=== PATIENT | male | born 1960 | race Caucasian/White ===

== ENCOUNTER 2018-03-20 16:34 | Observation (INO) | END 2018-03-21 14:15 | disposition home or self-care (01) ==

== ENCOUNTER 2018-08-21 12:21 | Inpatient (IN) | payer OTHER ==
[~2018-08-21] VITALS: Ht 172.7 cm; Wt 94.5 kg
[~2018-08-21 12:21] MED LIST: ASPI81TA52 PO; ATOR20TA38 PO; CARV25TA79 PO; INSU100I12 SQ; INSU300I SQ; LISI-471 PO; METF100010 PO; NITR0.4T39 SL; TAMS0.4C2 PO; TICA90TA PO
[2018-08-21] MEDS ORDERED: SOD CHLORIDE 0.9% 500 ML IV STA (12:35)
--- NOTE | 2018-08-21 13:17 | ERD ---
ER Documentation Chief Complaint Chief Complaint SENT BY FOR ABNORMAL STRESS TEST HPI 58-year-old man referred here by his tubular splitting machine tender for evaluation and admission due to abnormal exercise stress test performed today. Patient states he ran on the treadmill for about 3 minutes and developed pressure-like chest discomfort, it was noted that he had EKG changes during exercise stress test so he was referred here for admission and evaluation. Patient states he uses aspirin daily for the last few months he has been experiencing claudication and exertional chest discomfort. Patient denies chest pain in the ED. Patient denies shortness of breath, no cough, no fevers or chills, no weight loss, no vomiting or diarrhea. Does have a history of hypertension and diabetes and has been using his medications as prescribed. ROS All systems reviewed and are negative except as per history of present illness. Medications Home Meds Active Scripts Ticagrelor* (Brilinta*) 90 Mg Tablet, 90 MG PO BID for 30 Days, TAB Prov:GARY AVILES 03/21/18 Reported Medications Insulin Lispro (Humalog Kwikpen U-100) 100 Unit/1 Ml Insuln.pen, 14 UNIT SQ AC BREAKFAST LUNCH, EA 03/20/18 Insulin Glargine,Hum.rec.anlog (Toujeo Solostar) 300 Unit/1 Ml Insuln.pen, 34 UNIT SQ QHS, EA 03/20/18 Aspirin (Low Dose Aspirin) 81 Mg Tablet.dr, 81 MG PO DAILY, #30 TAB 03/20/18 Tamsulosin Hcl* (Tamsulosin Hcl*) 0.4 Mg Cap.er.24h, 0.4 MG PO HS, CAP 03/20/18 Metformin Hcl* (Metformin Hcl*) 1,000 Mg Tablet, 1000 MG PO WITH BREAKFAST DINNE, #60 TAB 03/20/18 Lisinopril* (Lisinopril*) 20 Mg Tablet, 20 MG PO DAILY, #30 TAB 03/20/18 Carvedilol* (Carvedilol*) 25 Mg Tablet, 25 MG PO BID, #60 TAB 03/20/18 Atorvastatin Calcium* (Atorvastatin Calcium*) 20 Mg Tablet, 20 MG PO QHS, #30 TAB 03/20/18 Nitroglycerin* (Nitrostat*) 0.4 Mg Tab.subl, 0.4 MG SL Q5MIN PRN for CHEST PAIN, BOTTLE 03/20/18 Allergies Allergies: Coded Allergies: No Known Allergy (Unverified , 03/20/18) PMhx/Soc Hypertension, diabetes mellitus History of Surgery: Yes (BACK SX 1996 , STENT ) Anesthesia Reaction: No Hx Neurological Disorder: No Hx Respiratory Disorders: No Hx Cardiac Disorders: Yes (HTN, HLP, ABNORMAL STRESS TEST) Hx Psychiatric Problems: No Hx Miscellaneous Medical Probl: Yes (DM ) Hx Alcohol Use: No Hx Substance Use: No Hx Tobacco Use: Yes (QUIT 7 MONTHS AGO ) Smoking Status: Former smoker FmHx Family History: No diabetes Physical Exam Vitals Vital Signs Date Temp Pulse Resp B/P (MAP) Pulse Ox O2 O2 Flow FiO2 Time Delivery Rate 08/21/18 86 18 125/84 98 Room Air 13:50 (98) 08/21/18 99.0 82 16 133/63 95 12:31 (86) Physical Exam GENERAL: Well-developed, well-nourished, well-hydrated, in no apparent distress, looks nontoxic in appearance HEENT: Moist mucous membranes, pink conjunctiva, no cervical spine tenderness or step-off deformities, no goiter, no jaundice or icterus, extraocular movements i ntact without pain. No submandibular induration, and no pharyngeal erythema NEURO: Alert and oriented 3, cranial nerves II through XII intact bilaterally, pupils equal round reactive to light, no focal deficits or facial asymmetry, sensation intact distally Strength 5/5 in upper and lower extremities bilaterally CARDIAC: Regular rate and rhythm, no murmurs rubs or gallops LUNGS: Clear bilaterally no wheezing crackles or stridor ABDOMEN: Soft nontender, no guarding, no rigidity, no rebound, no psoas sign no obturator sign. Normoactive bowel sounds SKIN: Warm and dry to touch, no abrasions, contusions, or hematomas, no lacerations, no ecchymosis, no target lesions, and without ulcers EXTREMITIES: No clubbing cyanosis or edema, calves are bilaterally symmetrical, no Homans sign, no popliteal cord sign. Distal pulses equal and bilateral PSYCH: Normal affect without agitation or irritability Result Diagram: 08/21/18 1248 08/21/18 1248 Results 24 hrs Laboratory Tests Test 08/21/18 12:48 White Blood Count 7.4 10^3/ul Red Blood Count 4.86 10^6/ul Hemoglobin 14.4 g/dl Hematocrit 41.5 % Mean Corpuscular Volume 85.4 fl Mean Corpuscular Hemoglobin 29.6 pg Mean Corpuscular Hemoglobin Concent 34.7 g/dl Red Cell Distribution Width 13.0 % Platelet Count 142 10^3/UL Mean Platelet Volume 10.9 fl Immature Granulocytes % 0.300 % Neutrophils % 71.4 % Lymphocytes % 16.9 % Monocytes % 6.9 % Eosinophils % 4.1 % Basophils % 0.4 % Nucleated Red Blood Cells % 0.0 /100WBC Immature Granulocytes # 0.020 10^3/ul Neutrophils # 5.3 10^3/ul Lymphocytes # 1.3 10^3/ul Monocytes # 0.5 10^3/ul Eosinophils # 0.3 10^3/ul Basophils # 0.0 10^3/ul Nucleated Red Blood Cells # 0.0 10^3/ul Sodium Level 137 mmol/L Potassium Level 4.3 mmol/L Chloride Level 101 mmol/L Carbon Dioxide Level 24 mmol/L Anion Gap 12 Blood Urea Nitrogen 16 mg/dl Creatinine 1.07 mg/dl Est Glomerular Filtrat Rate mL/min > 60 mL/min Glucose Level 205 mg/dl Calcium Level 9.3 mg/dl Total Bilirubin 0.5 mg/dl Direct Bilirubin 0.00 mg/dl Indirect Bilirubin 0.5 mg/dl Aspartate Amino Transf (AST/SGOT) 26 IU/L Alanine Aminotransferase (ALT/SGPT) 35 IU/L Alkaline Phosphatase 78 IU/L Troponin I 0.012 ng/ml B-Type Natriuretic Peptide 46 PG/ML Total Protein 7.2 g/dl Albumin 4.3 g/dl Globulin 2.90 g/dl Albumin/Globulin Ratio 1.48 Lipase 169 U/L Current Medications Medications Dose Sig/Mercedes Start Time Status Last (Trade) Ordered Route PRN Stop Time Admin Dose Reason Admin Sodium 500 ml @ Q1H STAT 08/21/18 DC 08/21/18 Chloride 500 mls/hr IV 12:35 12:53 08/21/18 13:34 Procedures/MDM IV line was established patient was placed on threat monitoring analyst rhythm strip revealed a sinus rhythm at about 90 bpm with upright P and T waves. Patient was afebrile Chest X-ray 1V Interpreted by me: Soft Tissue: No acute abnormalities Bones: No acute abnormalities Mediastinum/Cardiac Silhouette/Lungs: No acute abnormalities EKG performed, read by me revealed a normal sinus rhythm at 90 bpm, normal axis, narrow QRS complex, no concerning ST elevations or depressions noted. CBC and electrolytes were normal, liver function tests were normal, troponin was negative Patient is asymptomatic in the ER and used aspirin prior to arrival. Patient will be admitted to telemetry setting for continued medical management and cardiology consultation, it seems she had an abnormal stress test today with ST changes upon exertion and will require further management in the hospital. Departure Diagnosis: Primary Impression: Chest pain Chest pain type: unspecified Qualified Codes: R07.9 - Chest pain, unspecified Condition: KADE Gillespie MD Aug 21, 2018 13:17
[2018-08-21] MEDS ORDERED: INSU300I SQ (14:33)
[2018-08-21] MEDS ORDERED: TICA90TA PO (14:36)
[2018-08-21] MEDS ORDERED: AMLO2.5T78 PO (14:36)
[2018-08-21] MEDS ORDERED: NITROGLYCERIN (SL) 0.4 MG TAB SL PRN ×2 (16:30→21:00)
[2018-08-21] MEDS ORDERED: ONDANSETRON 4 MG INJ IV PRN (17:30)
[2018-08-21] MEDS ORDERED: ACETAMINOPHEN 325 MG TAB PO PRN ×2 (17:30→21:00)
--- NOTE | 2018-08-21 17:35 | HP ---
Date/Time of Note Date/Time of Note DATE: 08/21/18 TIME: 17:16 Assessment/Plan Lines/Catheters IV Catheter Type (from Nrsg): Saline Lock Assessment/Plan Assessment/Plan - Chest pain - Cardiology consult- Dr Ruiz - npo POST MIDNIGHT PER Dr Ruiz - am labs - Abnormal stress test - HTN - Hyperlipemia - DM - Glycemic control - GERD - SP Back SX - BPH - Former Smoker - Reinforce Smoking Cessation [facility] Result Diagram: 08/21/18 1248 08/21/18 1248 Results 24hrs Laboratory Tests Test 08/21/18 12:48 White Blood Count 7.4 Red Blood Count 4.86 Hemoglobin 14.4 Hematocrit 41.5 L Mean Corpuscular Volume 85.4 Mean Corpuscular Hemoglobin 29.6 Mean Corpuscular Hemoglobin Concent 34.7 Red Cell Distribution Width 13.0 Platelet Count 142 Mean Platelet Volume 10.9 H Immature Granulocytes % 0.300 Neutrophils % 71.4 Lymphocytes % 16.9 Monocytes % 6.9 Eosinophils % 4.1 Basophils % 0.4 Nucleated Red Blood Cells % 0.0 Immature Granulocytes # 0.020 Neutrophils # 5.3 Lymphocytes # 1.3 Monocytes # 0.5 Eosinophils # 0.3 Basophils # 0.0 Nucleated Red Blood Cells # 0.0 Sodium Level 137 Potassium Level 4.3 Chloride Level 101 Carbon Dioxide Level 24 Anion Gap 12 Blood Urea Nitrogen 16 Creatinine 1.07 Est Glomerular Filtrat Rate mL/min > 60 Glucose Level 205 Calcium Level 9.3 Total Bilirubin 0.5 Direct Bilirubin 0.00 Indirect Bilirubin 0.5 Aspartate Amino Transf (AST/SGOT) 26 Alanine Aminotransferase (ALT/SGPT) 35 Alkaline Phosphatase 78 Troponin I 0.012 B-Type Natriuretic Peptide 46 Total Protein 7.2 Albumin 4.3 Globulin 2.90 Albumin/Globulin Ratio 1.48 Lipase 169 HPI/ROS Admit Date/Time Admit Date/Time ROS SENT BY FOR ABNORMAL STRESS TEST HPI 58-year-old man referred here by his extruder tender for evaluation and admission due to abnormal exercise stress test performed today. Patient states he ran on the treadmill for about 3 minutes and developed pressure-like chest discomfort, it was noted that he had EKG changes during exercise stress test so he was referred here for admission and evaluation. Patient states he uses aspirin daily for the last few months he has been experiencing claudication and exertional chest discomfort. Patient denies chest pain in the ED. Patient denies shortness of breath, no cough, no fevers or chills, no weight loss, no vomiting or diarrhea. Does have a history of hypertension and diabetes and has been using his medications as prescribed. ROS All systems reviewed and are negative except as per history of present illness. Constitutional: improved Eyes: no complaints ENT: no complaints Respiratory: no complaints Cardiovascular: no complaints Gastrointestinal: no complaints Genitourinary: no complaints Musculoskeletal: no complaints Skin: no complaints Neurologic: no complaints Endocrine: no complaints Lymphatic: no complaints Psychological: nl mood/affect Immunologic: no complaints PMH/Family/Social Past Medical History Allergies Allergies: Coded Allergies: No Known Allergy (Unverified , 03/20/18) PMhx/Soc Hypertension, diabetes mellitus History of Surgery: Yes (BACK SX 1996 , STENT ) Anesthesia Reaction: No Hx Neurological Disorder: No Hx Respiratory Disorders: No Hx Cardiac Disorders: Yes (HTN, HLP, ABNORMAL STRESS TEST) Hx Psychiatric Problems: No Hx Miscellaneous Medical Probl: Yes (DM ) Hx Alcohol Use: No Hx Substance Use: No Hx Tobacco Use: Yes (QUIT 7 MONTHS AGO ) Smoking Status: Former smoker FmHx Family History: No diabetes Medications Current Medications Amlodipine Besylate (Norvasc) 2.5 mg DAILY PO ; Start 08/22/18 at 09:00; Status UNV Aspirin (Halfprin) 81 mg DAILY PO ; Start 08/22/18 at 09:00; Status UNV Atorvastatin Calcium (Lipitor) 20 mg QHS PO ; Start 08/21/18 at 21:00; Status UNV Carvedilol (Coreg) 25 mg BID PO ; Start 08/21/18 at 21:00; Status UNV Lisinopril (Zestril) 20 mg DAILY PO ; Start 08/22/18 at 09:00; Status UNV Nitroglycerin (Nitroglycerin (Sl Tab) 0.4 Mg) 0.4 tab PRN PRN SL CHEST PAIN; Start 08/21/18 at 16:30; Status UNV Tamsulosin HCl (Flomax) 0.4 mg HS PO ; Start 08/21/18 at 21:00; Status UNV Ticagrelor (Brilinta) 90 mg BID PO ; Start 08/21/18 at 21:00; Status UNV Miscellaneous Information (* Miscellaneous Pharmacy Order) Discontinue current oral sulfonylur... ONCE ONCE XX ; Start 08/21/18 at 16:30; Stop 08/21/18 at 16:31; Status UNV Diagnostic Test (Pha) (Accu-Chek) 1 XX ; Start 08/22/18 at 02:00; Status UNV Miscellaneous Information (* Miscellaneous Pharmacy Order) HYPOGLYCEMIA PROTOCOL w... ONCE ONCE XX ; Start 08/21/18 at 16:30; Stop 08/21/18 at 16:31; Status U NV Insulin Aspart (Novolog Insulin Pen) NOVOLOG *MILD* ALGORITHM WITH MEALS BEDTIME SC ; Start 08/21/18 at 18:00; Status UNV Miscellaneous Information (* Miscellaneous Pharmacy Order) Discontinue all previ... ONCE ONCE XX ; Start 08/21/18 at 16:30; Stop 08/21/18 at 16:31; Status UNV Insulin Glargine (Lantus) 20 units DAILY@2000 SC ; Start 08/21/18 at 20:00; Status UNV Coded Allergies: No Known Allergy (Unverified , 08/21/18) Past Surgical History Past Surgical Hx: other Family History Significant Family History: diabetes Social History Smoking Status: Former smoker Exam/Review of Systems Vital Signs Vitals Vital Signs Date Temp Pulse Resp B/P (MAP) Pulse Ox O2 O2 Flow FiO2 Time Delivery Rate 08/21/18 85 16 112/77 98 Room Air 15:30 (89) 08/21/18 99.0 12:31 Exam Constitutional: alert, oriented, well developed Psych: nl mood/affect Head: atraumatic Eyes: EOMI, nl lids, nl sclera ENMT: nl external ears & nose, nl lips & teeth, mucosa pink and moist Neck: non-tender Respiratory: clear to auscultation Cardiovascular: nl pulses, other (s1s2) Gastrointestinal: soft, non-tender Musculoskeletal: nl extremities to inspection Extremities: normal pulses Neurological: nl mental status, nl speech Skin: nl turgor Lymph: nontender GARY AVIELS Aug 21, 2018 17:33
[2018-08-21] MEDS ORDERED: INSULIN GLARGINE [LANTus] (100 UNITS/ML) SYG SC SCH (20:00)
--- NOTE | 2018-08-21 20:16 | CONS ---
DATE OF ADMISSION: 08/21/2018 DATE OF CONSULTATION: 08/21/2018 TYPE OF CONSULTATION: Cardiology. REASON FOR CONSULTATION: Abnormal stress test. REQUESTING PHYSICIAN: Purvi Worthington MD, from the hospital and Kade Curtis MD, from the emergenc y department. HISTORY OF PRESENT ILLNESS: Mr. Mcmullen is a 58-year-old male with a history of hypertension, dyslipid emia, diabetes mellitus, coronary artery disease, status post PTCA and stent placement on 03/20/2018 with 2 drug-eluting stents to circumflex and one to the LAD, was discharged on aspirin and Brilinta, who had presented to his primary media coordinator with complaints of chest pain. The patient subsequentl y underwent a cardiac stress test and was found to have ST elevations during his stress test; therefo re was terminated. The patient was referred to the emergency department for further evaluation and t reatment. Upon arrival, temperature was 99, blood pressure 133/60, pulse 82, respiratory rate 16, sa tting 94%. The patient's labs were notable for white blood cell count of 7.4, hemoglobin of 14.4, pl atelet count 142, sodium of 137, potassium 4.3, creatinine 1.0, BUN 16, AST 26, ALT 35, BNP of 46. T he patient's chest x-ray revealed no acute cardiopulmonary abnormalities. Electrocardiogram revealed normal sinus rhythm, rate 90, normal axis, normal intervals, nonspecific ST and T abnormalities. PAST MEDICAL HISTORY: As above in HPI. MEDICATIONS PRIOR TO ADMIT: 1. Brilinta 90 mg p.o. b.i.d. 2. Insulin. 3. Aspirin 81 mg daily. 4. Flomax 0.4 mg daily. 5. Metformin. 6. Lisinopril 10 mg daily. 7. Carvedilol 25 mg p.o. b.i.d. 8. Lipitor 20 mg at bedtime. 9. Sublingual nitroglycerin. ALLERGIES: NO KNOWN DRUG ALLERGIES. SOCIAL HISTORY: Former tobacco, quit x7 months. No EtOH or illicit drug use. FAMILY HISTORY: No history of sudden cardiac or early CAD. REVIEW OF SYSTEMS: As above in HPI. CONSTITUTIONAL: No fevers, chills. PULMONARY: Dyspnea on exertion. CARDIOVASCULAR: Chest pain. GASTROINTESTINAL: No vomiting. GENITOURINARY: No hematuria. MUSCULOSKELETAL: Degenerative joint disease. PSYCHIATRIC: The patient has depression. NEUROLOGIC: No documented history of CVA. ENDOCRINE: Diabetes mellitus. PHYSICAL EXAMINATION: VITAL SIGNS: Temperature of 99, blood pressure most recently is 112/77, pulse 85, respiratory rate 1 6, satting 98%. GENERAL: The patient is alert, awake, in no acute distress. NECK: JVP approximately is 8 to 9 cm of water. CHEST: Fair air movement throughout. HEART: Regular rate and rhythm. Normal S1, S2, I/ systolic murmur. Nondisplaced PMI. ABDOMEN: Positive bowel sounds, soft. EXTREMITIES: No edema, 1+ pulses bilateral posterior tibial. LABORATORY DATA: Most recently from today, sodium 137, potassium 4.3, creatinine 1.0, BUN 16. AST 2 6, ALT 35. Troponin negative. BNP of 46. White blood cell count 7.4, hemoglobin 14.4, platelet cou nt 142. IMAGING STUDIES: As above in HPI. No further imaging studies for my review at this time. ELECTROCARDIOGRAM: As above in HPI. No further electrocardiograms for my review at this time. IMPRESSION: 1. Chest pain, assess for acute coronary syndrome. 2. Abnormal cardiac stress test in primary media coordinator's office today with development of ST elevat ions and termination of stress test early. 3. History of PTCA and stent placement to LAD and circumflex in 03/2018. 4. Hypertension. 5. Dyslipidemia. 6. Former tobacco intake. RECOMMENDATIONS: 1. At this time, we would admit patient to telemetry monitoring. 2. We would continue the patient's baseline aspirin and Brilinta. 3. We would continue the patient's baseline statin therapy and adjust it according to a fasting lipi d panel checked. 4. Continue the patient's baseline beta blockers and TAMAR inhibitors. 5. Continue the patient's sublingual nitroglycerin for recurrent episodes of chest pain. 6. Follow the patient's blood sugars closely. 7. Check serial EKGs, assess for ongoing changes, EKG in the morning, EKG for any complaints of ches t pain or change in rhythm and we will discuss possibly repeat cardiac catheterization with this joan ent. Thank you for allowing me to take part in the care of this patient. Dictated By: RAYMUNDO MUNSON/MARYBEL Conf#: [id number] DID#: [id number] CC: KADE CURTIS MD; PURVI WORTHINGTON MD;*EndCC*
[2018-08-21] MEDS ORDERED: ZOLPIDEM 5 MG TAB PO PRN (21:00)
[2018-08-21] MEDS ORDERED: GLUCAGON 1 MG INJ IM PRN (21:00)
[2018-08-21] MEDS ORDERED: DEXTROSE 50% 50 ML SYRINGE IV PRN ×2 (21:00)
[2018-08-21] MEDS ORDERED: ATORVASTATIN 20 MG TAB PO SCH ×2 (21:00)
[2018-08-21] MEDS ORDERED: GLUCOSE GEL 15 GRAM TUBE PO PRN ×2 (21:00)
[2018-08-21] MEDS ORDERED: METOPROLOL 25 MG TAB PO SCH (21:00)
[2018-08-21] MEDS ORDERED: TICAGRELOR 90 MG TABLET PO SCH (21:00)
[2018-08-21] MEDS ORDERED: GLUCOSE GEL 15 GRAM TUBE BUCCAL PRN (21:00)
[2018-08-21] MEDS: INSULIN ASPART [NOVOLOG] 3 ML PEN SC SCH ×2 (21:00→21:47)
[2018-08-21] MEDS ORDERED: TAMSULOSIN (SR) 0.4 MG CAP PO SCH ×2 (21:00)
[2018-08-21 21:43] VITALS: Ht 172.7 cm; Wt 94.5 kg
[2018-08-21] MEDS: DOCUSATE SODIUM 100 MG CAP PO SCH (21:48)
[2018-08-21] MEDS: TICAGRELOR 90 MG TABLET PO SCH (22:06)
[2018-08-21 23:16] VITALS: BP 106/78; PULSE 90; RESP 19
[2018-08-22] VITALS (9 sets, daily range): BP systolic 112–138; BP diastolic 60–76; PULSE 70–91; RESP 18–19
[2018-08-22] MEDS ORDERED: ACCU-CHEK XX SCH (02:00)
[2018-08-22] MEDS: DOCUSATE SODIUM 100 MG CAP PO SCH (08:02)
[2018-08-22] MEDS: INSULIN ASPART [NOVOLOG] 3 ML PEN SC SCH ×3 (08:06→16:39)
[2018-08-22] MEDS: TICAGRELOR 90 MG TABLET PO SCH (08:06)
[2018-08-22] MEDS ORDERED: PANTOPRAZOLE (EC) 40 MG TAB PO SCH (09:00)
[2018-08-22] MEDS ORDERED: LISINOPRIL 20 MG TAB PO SCH ×2 (09:00)
[2018-08-22] MEDS ORDERED: ASPIRIN 81 MG TAB PO SCH (09:00)
[2018-08-22] MEDS ORDERED: AMLODIPINE 2.5 MG TAB PO SCH (09:00)
[2018-08-22] MEDS ORDERED: ASPIRIN (EC) 81 MG TAB PO SCH (09:00)
--- NOTE | 2018-08-22 10:50 | PN ---
Date/Time of Note Date/Time of Note DATE: 08/22/18 TIME: 10:48 Assessment/Plan VTE Prophylaxis Risk score (from Nsg)>0 risk: 1 SCD applied (from Nsg): No Lines/Catheters IV Catheter Type (from Nrsg): Saline Lock Assessment/Plan Assessment/Plan - Chest pain - Cardiology consult- Dr Ruiz - npo POST MIDNIGHT PER Dr Ruiz- but patient ate breakfast today. will follow cardio - am labs - Abnormal stress test - HTN - Hyperlipemia - DM - Glycemic control - GERD - SP Back SX - BPH - Former Smoker - Reinforce Smoking Cessation [facility] Result Diagram: 08/21/18 1248 08/22/18 0505 Results 24hrs Laboratory Tests Test 08/21/18 12:48 08/21/18 18:28 08/21/18 21:39 08/22/18 00:52 White Blood Count 7.4 Red Blood Count 4.86 Hemoglobin 14.4 Hematocrit 41.5 L Mean Corpuscular 85.4 Volume Mean Corpuscular 29.6 Hemoglobin Mean Corpuscular 34.7 Hemoglobin Concent Red Cell 13.0 Distribution Width Platelet Count 142 Mean Platelet Volume 10.9 H Immature 0.300 Granulocytes % Neutrophils % 71.4 Lymphocytes % 16.9 Monocytes % 6.9 Eosinophils % 4.1 Basophils % 0.4 Nucleated Red Blood 0.0 Cells % Immature 0.020 Granulocytes # Neutrophils # 5.3 Lymphocytes # 1.3 Monocytes # 0.5 Eosinophils # 0.3 Basophils # 0.0 Nucleated Red Blood 0.0 Cells # Sodium Level 137 Potassium Level 4.3 Chloride Level 101 Carbon Dioxide Level 24 Anion Gap 12 Blood Urea Nitrogen 16 Creatinine 1.07 Est Glomerular > 60 Filtrat Rate mL/min Glucose Level 205 Calcium Level 9.3 Total Bilirubin 0.5 Direct Bilirubin 0.00 Indirect Bilirubin 0.5 Aspartate Amino 26 Transf (AST/SGOT) Alanine 35 Aminotransferase (AL T/SGPT) Alkaline Phosphatase 78 Troponin I 0.012 0.027 0.018 B-Type Natriuretic 46 Peptide Total Protein 7.2 Albumin 4.3 Globulin 2.90 Albumin/Globulin 1.48 Ratio Lipase 169 Bedside Glucose 134 Test 08/22/18 05:05 08/22/18 07:55 Activated 38.8 H Partial Thromboplast Time Sodium Level 141 Potassium Level 3.8 Chloride Level 101 Carbon Dioxide Level 25 Anion Gap 15 H Blood Urea Nitrogen 17 Creatinine 0.93 Est Glomerular > 60 Filtrat Rate mL/min Glucose Level 182 Hemoglobin A1c 7.0 H Calcium Level 9.3 Total Bilirubin 0.4 Direct Bilirubin 0.00 Indirect Bilirubin 0.4 Aspartate Amino 20 Transf (AST/SGOT) Alanine 26 Aminotransferase (AL T/SGPT) Alkaline Phosphatase 70 Troponin I 0.030 Total Protein 6.5 Albumin 4.0 Globulin 2.50 Albumin/Globulin 1.60 Ratio Triglycerides Level 248 H Cholesterol Level 133 LDL Cholesterol, 59 Calculated HDL Cholesterol 24 L Cholesterol/HDL 5.5 Ratio Thyroid Stimulating 0.601 Hormone (TSH) Bedside Glucose 185 Exam/Review of Systems Exam Vitals Vital Signs Date Temp Pulse Resp B/P (MAP) Pulse Ox O2 O2 Flow FiO2 Time Delivery Rate 08/22/18 97.3 80 18 138/76 92 07:18 (96) 08/21/18 Room Air 23:16 Intake and Output 08/21/18 08/21/18 08/22/18 1515:00 23:00 07:00 IntakeIntake Total 400 ml BalanceBalance 400 ml Constitutional: alert, oriented, well developed Psych: nl mood/affect Eyes: nl lids, nl sclera ENMT: nl external ears & nose, nl lips & teeth Neck: non-tender Respiratory: clear to auscultation Cardiovascular: nl pulses, other (s1ss2) Gastrointestinal: soft, non-tender Musculoskeletal: nl extremities to inspection Extremities: normal pulses Neurological: nl mental status, nl speech Skin: nl turgor Lymph: nontender Results Results 24hrs Laboratory Tests Test 08/21/18 12:48 08/21/18 18:28 08/21/18 21:39 08/22/18 00:52 White Blood Count 7.4 Red Blood Count 4.86 Hemoglobin 14.4 Hematocrit 41.5 L Mean Corpuscular 85.4 Volume Mean Corpuscular 29.6 Hemoglobin Mean Corpuscular 34.7 Hemoglobin Concent Red Cell 13.0 Distribution Width Platelet Count 142 Mean Platelet Volume 10.9 H Immature 0.300 Granulocytes % Neutrophils % 71.4 Lymphocytes % 16.9 Monocytes % 6.9 Eosinophils % 4.1 Basophils % 0.4 Nucleated Red Blood 0.0 Cells % Immature 0.020 Granulocytes # Neutrophils # 5.3 Lymphocytes # 1.3 Monocytes # 0.5 Eosinophils # 0.3 Basophils # 0.0 Nucleated Red Blood 0.0 Cells # Sodium Level 137 Potassium Level 4.3 Chloride Level 101 Carbon Dioxide Level 24 Anion Gap 12 Blood Urea Nitrogen 16 Creatinine 1.07 Est Glomerular > 60 Filtrat Rate mL/min Glucose Level 205 Calcium Level 9.3 Total Bilirubin 0.5 Direct Bilirubin 0.00 Indirect Bilirubin 0.5 Aspartate Amino 26 Transf (AST/SGOT) Alanine 35 Aminotransferase (AL T/SGPT) Alkaline Phosphatase 78 Troponin I 0.012 0.027 0.018 B-Type Natriuretic 46 Peptide Total Protein 7.2 Albumin 4.3 Globulin 2.90 Albumin/Globulin 1.48 Ratio Lipase 169 Bedside Glucose 134 Test 08/22/18 05:05 08/22/18 07:55 Activated 38.8 H Partial Thromboplast Time Sodium Level 141 Potassium Level 3.8 Chloride Level 101 Carbon Dioxide Level 25 Anion Gap 15 H Blood Urea Nitrogen 17 Creatinine 0.93 Est Glomerular > 60 Filtrat Rate mL/min Glucose Level 182 Hemoglobin A1c 7.0 H Calcium Level 9.3 Total Bilirubin 0.4 Direct Bilirubin 0.00 Indirect Bilirubin 0.4 Aspartate Amino 20 Transf (AST/SGOT) Alanine 26 Aminotransferase (AL T/SGPT) Alkaline Phosphatase 70 Troponin I 0.030 Total Protein 6.5 Albumin 4.0 Globulin 2.50 Albumin/Globulin 1.60 Ratio Triglycerides Level 248 H Cholesterol Level 133 LDL Cholesterol, 59 Calculated HDL Cholesterol 24 L Cholesterol/HDL 5.5 Ratio Thyroid Stimulating 0.601 Hormone (TSH) Bedside Glucose 185 Medications Medication Current Medications Amlodipine Besylate (Norvasc) 2.5 mg DAILY PO Last administered on 08/22/18at 08:03; Admin Dose 2.5 MG; Start 08/22/18 at 09:00 Aspirin (Halfprin) 81 mg DAILY PO Last administered on 08/22/18at 08:02; Admin Dose 81 MG; Start 08/22/18 at 09:00 Atorvastatin Calcium (Lipitor) 20 mg QHS PO Last administered on 08/21/18at 21:48; Admin Dose 20 MG; Start 08/21/18 at 21:00 Carvedilol (Coreg) 25 mg BID PO Last administered on 08/22/18at 08:03; Admin Dose 25 MG; Start 08/21/18 at 21:00 Lisinopril (Zestril) 20 mg DAILY PO Last administered on 08/22/18 08:03; Admin Dose 20 MG; Start 08/22/18 at 09:00 Tamsulosin HCl (Flomax) 0.4 mg HS PO Last administered on 08/21/18at 22:21; Admin Dose 0.4 MG; Start 08/21/18 at 21:00 Ticagrelor (Brilinta) 90 mg BID PO Last administered on 08/22/18 08:06; Admin Dose 90 MG; Start 08/21/18 at 21:00 Diagnostic Test (Pha) (Accu-Chek) 1 ea 02 XX ; Start 08/22/18 at 02:00 Insulin Aspart (Novolog Insulin Pen) NOVOLOG *MILD* ALGORITHM WITH MEALS BEDTIME SC Last administered on 08/22/18at 08:06; Admin Dose 2 UNIT; Start 08/21/18 at 18:00 Insulin Glargine (Lantus) 20 units DAILY@2000 SC Last administered on 08/21/18at 22:05; Admin Dose 20 UNITS; Start 08/21/18 at 20:00 Pantoprazole (Protonix Tab) 40 mg DAILY PO Last administered on 08/22/18at 08:02; Admin Dose 40 MG; Start 08/22/18 at 09:00 Ondansetron HCl (Zofran Inj) 4 mg Q6 PRN IV NAUSEA AND/OR VOMITING; Start 08/21/18 at 17:30 Docusate Sodium (Colace) 100 mg BID PO Last administered on 08/22/18at 08:02; Admin Dose 100 MG; Start 08/21/18 at 21:00 Miscellaneous Information 1 ea NOTE XX ; Start 08/21/18 at 21:00 Glucose (Glutose) 15 gm Q15M PRN PO DECREASED GLUCOSE; Start 08/21/18 at 21:00 Glucose (Glutose) 22.5 gm Q15M PRN PO DECREASED GLUCOSE; Start 08/21/18 at 21:00 Dextrose (D50w Syringe) 25 ml Q15M PRN IV DECREASED GLUCOSE; Start 08/21/18 at 21:00 Dextrose (D50w Syringe) 50 ml Q15M PRN IV DECREASED GLUCOSE; Start 08/21/18 at 21:00 Glucagon (Glucagen) 1 mg Q15M PRN IM DECREASED GLUCOSE; Start 08/21/18 at 21:00 Glucose (Glutose) 15 gm Q15M PRN BUCCAL DECREASED GLUCOSE; Start 08/21/18 at 21:00 Zolpidem Tartrate (Ambien) 5 mg HS PRN PO INSOMNIA; Start 08/21/18 at 21:00 Nitroglycerin (Nitroglycerin (Sl Tab) 0.4 Mg) 1 tab Q5M PRN SL ANGINA; Start 08/21/18 at 21:00 GARY AVILES Aug 22, 2018 10:50
--- NOTE | 2018-08-22 13:48 | RADRPT ---
Vent Rate: 73 bpm RR Interval: 816 msec MN Interval: 151 msec QRS Duration: 98 msec QT Interval: 378 msec QTC Interval: 418 msec P-R-T Wadley: 65 - 50 - 53 degrees Sinus rhythm Borderline ST elevation, anterior leads...ST >0.15mV in V1-V4 Electronically Signed By: Mehran Hare
--- NOTE | 2018-08-22 17:43 | CONS ---
Assessment/Plan Assessment/Plan Hospital Course (Demo Recall) IMPRESSION: 1. Chest pain, assess for acute coronary syndrome.-neg trop x 3. NL 2. Abnormal cardiac stress test in primary records manager's office today with development of ST elevations and termination of stress test early. 3. History of PTCA and stent placement to LAD and circumflex in 03/2018. 4. Hypertension. 5. Dyslipidemia. 6. Former tobacco intake. Recc: -Patient was scheduled for LHC with possible PTCA/stent to be done today but was accidently fed full meal right before scheduled procedure. Thus procedure canceled. Patient with no active chest pain at this time and neg trop x 3. Patient would like to be d/c'd and retuen for procedure at later date. WE will thus seek insurance approval and schedule patient for LHC to take place 08/27/18 at 2:00pm. -Continue coreg/ACEI/norvasc -Continue statin -Continue brilinta/asa -start oral nitrates. Consultation Date/Type/Reason Admit Date/Time Aug 21, 2018 at 14:27 Initial Consult Date 08/21/18 Type of Consult Cardiology Reason for Consultation chest pain Requesting Provider: SANDRA PACE MD Date/Time of Note DATE: 08/22/18 TIME: 17:37 Exam/Review of Systems Vital Signs Vitals Vital Signs Date Temp Pulse Resp B/P (MAP) Pulse Ox O2 O2 Flow FiO2 Time Delivery Rate 08/22/18 98.0 74 19 130/60 94 16:06 (83) 08/21/18 Room Air 23:16 Intake and Output 08/21/18 08/21/18 08/22/18 1515:00 23:00 07:00 IntakeIntake Total 400 ml BalanceBalance 400 ml Exam Exam Review of Systems: CONSTITUTIONAL: No fevers, chills. PULMONARY: No sob CARDIOVASCULAR: No chest pain/palpitations GASTROINTESTINAL: No nausea/vomiting. GENITOURINARY: No hematuria/dysuria. MUSCULOSKELETAL: No myagias/arthalgias. PSYCHIATRIC: The patient denies depression. NEUROLOGIC: No weakness Constitutional: alert, oriented Psych: no complaints Head: normocephalic ENMT: mucosa pink and moist Neck: supple, jvd (9 cm water) Respiratory: clear to auscultation Cardiovascular: regular rate and rhythm Gastrointestinal: soft, non-tender Musculoskeletal: muscle tone (normal) Extremities: edema (none) Neurological: other (NO focal deficits) Labs Result Diagram: 08/21/18 1248 08/22/18 0505 Results 24hrs Laboratory Tests Test 08/21/18 18:28 08/21/18 21:39 08/22/18 00:52 08/22/18 05:05 Troponin I 0.027 0.018 0.030 Bedside Glucose 134 Activated 38.8 H Partial Thromboplast Time Sodium Level 141 Potassium Level 3.8 Chloride Level 101 Carbon Dioxide Level 25 Anion Gap 15 H Blood Urea Nitrogen 17 Creatinine 0.93 Est Glomerular > 60 Filtrat Rate mL/min Glucose Level 182 Hemoglobin A1c 7.0 H Calcium Level 9.3 Total Bilirubin 0.4 Direct Bilirubin 0.00 Indirect Bilirubin 0.4 Aspartate Amino 20 Transf (AST/SGOT) Alanine 26 Aminotransferase (AL T/SGPT) Alkaline Phosphatase 70 Total Protein 6.5 Albumin 4.0 Globulin 2.50 Albumin/Globulin 1.60 Ratio Triglycerides Level 248 H Cholesterol Level 133 LDL Cholesterol, 59 Calculated HDL Cholesterol 24 L Cholesterol/HDL 5.5 Ratio Thyroid Stimulating 0.601 Hormone (TSH) Test 08/22/18 07:55 08/22/18 12:00 08/22/18 16:31 Bedside Glucose 185 224 H 259 H Medications Medications Current Medications Amlodipine Besylate (Norvasc) 2.5 mg DAILY PO Last administered on 08/22/18at 08:03; Admin Dose 2.5 MG; Start 08/22/18 at 09:00 Aspirin (Halfprin) 81 mg DAILY PO Last administered on 08/22/18at 08:02; Admin Dose 81 MG; Start 08/22/18 at 09:00 Atorvastatin Calcium (Lipitor) 20 mg QHS PO Last administered on 08/21/18at 21:48; Admin Dose 20 MG; Start 08/21/18 at 21:00 Carvedilol (Coreg) 25 mg BID PO Last administered on 08/22/18at 08:03; Admin Dose 25 MG; Start 08/21/18 at 21:00 Lisinopril (Zestril) 20 mg DAILY PO Last administered on 08/22/18at 08:03; Admin Dose 20 MG; Start 08/22/18 at 09:00 Tamsulosin HCl (Flomax) 0.4 mg HS PO Last administered on 08/21/18at 22:21; Admin Dose 0.4 MG; Start 08/21/18 at 21:00 Ticagrelor (Brilinta) 90 mg BID PO Last administered on 08/22/18at 08:06; Admin Dose 90 MG; Start 08/21/18 at 21:00 Diagnostic Test (Pha) (Accu-Chek) 1 ea 02 XX ; Start 08/22/18 at 02:00 Insulin Aspart (Novolog Insulin Pen) NOVOLOG *MILD* ALGORITHM WITH MEALS BEDTIME SC Last administered on 08/22/18at 16:39; Admin Dose 3 UNIT; Start 08/21/18 at 18:00 Insulin Glargine (Lantus) 20 units DAILY@2000 SC Last administered on 08/21/18at 22:05; Admin Dose 20 UNITS; Start 08/21/18 at 20:00 Pantoprazole (Protonix Tab) 40 mg DAILY PO Last administered on 08/22/18at 08:02; Admin Dose 40 MG; Start 08/22/18 at 09:00 Ondansetron HCl (Zofran Inj) 4 mg Q6 PRN IV NAUSEA AND/OR VOMITING; Start 08/21/18 at 17:30 Docusate Sodium (Colace) 100 mg BID PO Last administered on 08/22/18at 08:02; Admin Dose 100 MG; Start 08/21/18 at 21:00 Miscellaneous Information 1 ea NOTE XX ; Start 08/21/18 at 21:00 Glucose (Glutose) 15 gm Q15M PRN PO DECREASED GLUCOSE; Start 08/21/18 at 21:00 Glucose (Glutose) 22.5 gm Q15M PRN PO DECREASED GLUCOSE; Start 08/21/18 at 21:00 Dextrose (D50w Syringe) 25 ml Q15M PRN IV DECREASED GLUCOSE; Start 08/21/18 at 21:00 Dextrose (D50w Syringe) 50 ml Q15M PRN IV DECREASED GLUCOSE; Start 08/21/18 at 21:00 Glucagon (Glucagen) 1 mg Q15M PRN IM DECREASED GLUCOSE; Start 08/21/18 at 21:00 Glucose (Glutose) 15 gm Q15M PRN BUCCAL DECREASED GLUCOSE; Start 08/21/18 at 21:00 Zolpidem Tartrate (Ambien) 5 mg HS PRN PO INSOMNIA; Start 08/21/18 at 21:00 Nitroglycerin (Nitroglycerin (Sl Tab) 0.4 Mg) 1 tab Q5M PRN SL ANGINA; Start 08/21/18 at 21:00 RAYMUNDO CALVO Aug 22, 2018 17:43
--- NOTE | 2018-08-22 17:48 | PDOCDIS ---
Discharge Instructions CONDITION [id number] Patient Condition: [id number] Good HOME CARE INSTRUCTIONS: [id number] Diet Instructions: [id number] Low Fat /Cholesterol ACTIVITY: [id number] Activity Restrictions: Mbqbr3a Rest between Activity Avoid Heavy Housework Glwnt5Dw Bathing Restrictions: [id number] Shower FOLLOW UP/APPOINTMENTS Follow-up Plan Dr. Ruiz on 08/26/18 PMD next week SANDRA PACE MD Aug 22, 2018 17:48
--- NOTE | 2018-08-22 21:29 | RADRPT ---
Echocardiogram Report Patient Name: MARLA GIRONatient ID: [id number] : 1960 (58y )Study Date: 08/21/2018 4:42:08 PM Gender: MAccession #: [id number] Tech: Santhosh Thomas [facility] Location: [facility] Ref.Physician: GARY AVILES Height(Cm): BSA: Weight(Kg): Quality: AdequateAccount #: Procedures: Echocardiographic Report: Transthoracic echocardiogram with complete 2D, M-Mode, and doppler examination. Indications: Chest Pain. Measurements: 2D/M Mode Doppler Measurement Value Normal Range Measurement Value Normal Range LVIDd 2D 3.7 [ 4.2 - 5.8 ] cm AV Peak Heraclio 1.6 [ 100.0 - 170.0 ] cm/sec LVIDs 2D 2.6 [ 2.5 - 4.0 ] cm AV Peak PG 11.0 [ 2.0 - 9.0 ] mmHg LVPWd 2D 1.3 [ 0.6 - 1.0 ] cm LVOT Peak Heraclio 0.8 [ 70.0 - 110.0 ] cm/sec IVSd 2D 1.3 [ 0.6 - 1.0 ] cm LVOT Peak PG 3.0 [ 2.0 - 6.0 ] mmHg AoR Diam 2D 2.5 [ 2.6 - 3.4 ] cm MV E Peak Heraclio 0.9 [ 60.0 - 130.0 ] cm/sec EDV 2D 58.1 [ 62.0 - 150.0 ] ml MV A Peak Heraclio 0.6 [ 100.0 - 120.0 ] cm/sec ESV 2D 23.9 [ 21.0 - 61.0 ] ml MV E/A 1.4 [ 0.8 - 1.5 ] ratio EF 2D 58.9 [ 52.0 - 72.0 ] percent MV Decel Time 144 [ 104 - 258 ] msec LA Dimen 2D 3.9 [ 3.0 - 4.0 ] cm Lat E` Heraclio 0.1 [ 10.0 - 15.0 ] cm/sec Lateral E/E` 7.1 [ 1.0 - 2.0 ] ratio MV E/A 1.4 [ 0.8 - 1.5 ] ratio TR Peak Heraclio 2.1 [ 100.0 - 280.0 ] cm/sec TR Peak PG 17.0 mmHg RVSP 20.0 [ 10.0 - 36.0 ] mmHg Findings: Left Ventricle: Normal left ventricular systolic function. Normal left ventricular cavity size. Mild concentric left ventricular hypertrophy. Ejection fraction is visually estimated at 55 %. Tissue Doppler/Mitral Doppler indices are consistent with pseudonormalization with mildly elevated left atrial pressure (Stage II diastolic dysfunction). Right Ventricle: Normal right ventricular size. Normal right ventricular systolic function. Left Atrium: The left atrium is normal in size. Right Atrium: The right atrium is normal in size. Mitral Valve: Mild mitral leaflet calcification. Mild mitral annular calcification. Trace mitral regurgitation. Aortic Valve: No significant aortic stenosis or insufficiency. No hemodynamically significant aortic stenosis by doppler. Tricuspid Valve: Normal appearance of the tricuspid valve. Estimated peak PA systolic pressure 20 mmHg. There is trace tricuspid regurgitation. Pulmonic Valve: Pulmonic valve not well visualized. Pericardium: Normal pericardium with no significant pericardial effusion. Aorta: Normal aortic root. IVC: Normal size and normal respiratory collapse consistent with normal right atrial pressure. Conclusions: Normal left ventricular systolic function. Normal left ventricular cavity size. Mild concentric left ventricular hypertrophy. Ejection fraction is visually estimated at 55 %. Tissue Doppler/Mitral Doppler indices are consistent with pseudonormalization with mildly elevated left atrial pressure (Stage II diastolic dysfunction). Mild mitral leaflet calcification. Mild mitral annular calcification. Trace mitral regurgitation. Normal appearance of the tricuspid valve. Estimated peak PA systolic pressure 20 mmHg. There is trace tricuspid regurgitation. Electronically Signed By: Terrence Ruiz 2018-08-22 21:29:00 PDT
== END 2018-08-22 18:19 | disposition home or self-care (01) | DRG 313 ==
LOC: E/R 12:21 → 6WM 14:27
PROVIDERS: ADMIT Internal Medicine; ATTEND Internal Medicine
DX: R07.9 Chest pain, unspecified (principal); R94.39 Abnormal result of other cardiovascular function study; Z95.5 Presence of coronary angioplasty implant and graft; I10 Essential (primary) hypertension; E78.5 Hyperlipidemia, unspecified; Z87.891 Personal history of nicotine dependence
CPT/HCPCS: 36415; 71045; 80053; 80061; 82962; 83036; 83690; 83880; 84443; 84484; 85025; 85730; 93005; 93306; J1815; J7040

== ENCOUNTER 2018-08-27 09:08 | Observation (INO) | payer OTHER ==
[2018-08-27] VITALS (32 sets, daily range): BP systolic 93–122; BP diastolic 52–71; PULSE 74–90; RESP 11–28; Ht 172.7 cm; Wt 100.0 kg
[~2018-08-27] VITALS: Ht 172.7 cm; Wt 100.0 kg
[~2018-08-27 09:08] MED LIST changes: +AMLO2.5T78 PO
[2018-08-27] MEDS ORDERED: NITROGLYCERIN 2% 1 GM OINT PKT TD STA (09:23)
[2018-08-27] MEDS ORDERED: ASPIRIN 81 MG TAB PO STA (09:23)
[2018-08-27] MEDS ORDERED: NITROGLYCERIN (SL) 0.4 MG TAB SL PRN (09:30)
[2018-08-27] MEDS ORDERED: ACETAMINOPHEN 325 MG TAB PO PRN ×2 (11:00→16:30)
[2018-08-27] MEDS ORDERED: ONDANSETRON 4 MG INJ IV PRN ×2 (11:00→16:30)
--- NOTE | 2018-08-27 12:50 | ERD ---
ER Documentation Chief Complaint Chief Complaint cp onset since last night HPI Patient is a 58-year-old male with coronary artery disease, hypertension, diabetes, and high cholesterol who presents with chest pain. The chest pain is midsternal, sharp, and constant in nature. It started 2 nights ago. Upon review of old medical records this is the patient's fourth visit to the ER since 2018. His drum sprayer is Dr. Ruiz and there is a plan to do a cardiac cath today. ROS All systems reviewed and are negative except as per history of present illness. Medications Home Meds Reported Medications Amlodipine Besylate* (Amlodipine Besylate*) 2.5 Mg Tablet, 2.5 MG PO DAILY, #30 TAB 08/21/18 Ticagrelor* (Brilinta*) 90 Mg Tablet, 90 MG PO Q12, TAB 08/21/18 Insulin Glargine,Hum.rec.anlog (Toujeo Solostar) 300 Unit/1 Ml Insuln.pen, 36 UNIT SQ QHS, EA 08/21/18 Insulin Lispro (Humalog Kwikpen U-100) 100 Unit/1 Ml Insuln.pen, 14 UNIT SQ AC BREAKFAST LUNCH, EA 03/20/18 Aspirin (Low Dose Aspirin) 81 Mg Tablet.dr, 81 MG PO DAILY, #30 TAB 03/20/18 Tamsulosin Hcl* (Tamsulosin Hcl*) 0.4 Mg Cap.er.24h, 0.4 MG PO HS, CAP 03/20/18 Metformin Hcl* (Metformin Hcl*) 1,000 Mg Tablet, 1000 MG PO WITH BREAKFAST DINNE, #60 TAB 03/20/18 Lisinopril* (Lisinopril*) 20 Mg Tablet, 20 MG PO DAILY, #30 TAB 03/20/18 Carvedilol* (Carvedilol*) 25 Mg Tablet, 25 MG PO BID, #60 TAB 03/20/18 Atorvastatin Calcium* (Atorvastatin Calcium*) 20 Mg Tablet, 20 MG PO QHS, #30 TAB 03/20/18 Nitroglycerin* (Nitrostat*) 0.4 Mg Tab.subl, 0.4 MG SL Q5MIN PRN for CHEST PAIN, BOTTLE 03/20/18 Discontinued Reported Medications Insulin Glargine,Hum.rec.anlog (Toujeo Solostar) 300 Unit/1 Ml Insuln.pen, 34 UNIT SQ QHS, EA 03/20/18 Discontinued Scripts Ticagrelor* (Brilinta*) 90 Mg Tablet, 90 MG PO BID for 30 Days, TAB Prov:GARY AVILES 03/21/18 Allergies Allergies: Coded Allergies: No Known Allergy (Unverified , 08/27/18) PMhx/Soc History of Surgery: Yes (stents x3) Anesthesia Reaction: No Hx Neurological Disorder: No Hx Respiratory Disorders: No Hx Cardiac Disorders: No Hx Psychiatric Problems: No Hx Miscellaneous Medical Probl: Yes (HTN, Cholesterol, DM) Hx Alcohol Use: No Hx Substance Use: No Hx Tobacco Use: No Smoking Status: Former smoker FmHx Family History: coronary disease Physical Exam Vitals Vital Signs Date Temp Pulse Resp B/P (MAP) Pulse Ox O2 O2 Flow FiO2 Time Delivery Rate 08/27/18 79 16 109/67 100 Room Air 12:11 (81) 08/27/18 76 18 123/77 99 Room Air 10:45 (92) 08/27/18 97.8 81 18 138/64 99 09:12 (88) Physical Exam Const: No acute distress Head: Atraumatic Eyes: Normal Conjunctiva ENT: Normal External Ears, Nose and Mouth. Neck: Full range of motion. No meningismus. Resp: Clear to auscultation bilaterally Cardio: Regular rate and rhythm, no murmurs Abd: Soft, non tender, non distended. Normal bowel sounds Skin: No petechiae or rashes Back: No midline or flank tenderness Ext: No cyanosis, or edema Neur: Awake and alert Psych: Normal Mood and Affect Result Diagram: 08/27/18 0945 08/27/18 0945 Results 24 hrs Laboratory Tests Test 08/27/18 09:45 White Blood Count 7.5 10^3/ul Red Blood Count 5.09 10^6/ul Hemoglobin 14.9 g/dl Hematocrit 43.4 % Mean Corpuscular Volume 85.3 fl Mean Corpuscular Hemoglobin 29.3 pg Mean Corpuscular Hemoglobin Concent 34.3 g/dl Red Cell Distribution Width 13.0 % Platelet Count 142 10^3/UL Mean Platelet Volume 10.9 fl Immature Granulocytes % 0.400 % Neutrophils % 60.3 % Lymphocytes % 23.9 % Monocytes % 8.3 % Eosinophils % 6.8 % Basophils % 0.3 % Nucleated Red Blood Cells % 0.0 /100WBC Immature Granulocytes # 0.030 10^3/ul Neutrophils # 4.5 10^3/ul Lymphocytes # 1.8 10^3/ul Monocytes # 0.6 10^3/ul Eosinophils # 0.5 10^3/ul Basophils # 0.0 10^3/ul Nucleated Red Blood Cells # 0.0 10^3/ul Sodium Level 141 mmol/L Potassium Level 4.1 mmol/L Chloride Level 101 mmol/L Carbon Dioxide Level 25 mmol/L Anion Gap 15 Blood Urea Nitrogen 15 mg/dl Creatinine 0.90 mg/dl Est Glomerular Filtrat Rate mL/min > 60 mL/min Glucose Level 154 mg/dl Calcium Level 9.4 mg/dl Troponin I 0.050 ng/ml Current Medications Medications Dose Sig/Mercedes Start Time Status Last (Trade) Ordered Route PRN Stop Time Admin Dose Reason Admin Aspirin 162 mg ONCE STAT 08/27/18 DC 08/27/18 (Aspirin) PO 09:23 09:50 08/27/18 09:24 1 inch ONCE STAT 08/27/18 DC 08/27/18 Nitroglycerin TD 09:23 09:50 08/27/18 09:24 (Nitroglyceri n 2% Oint) 1 tab Q5M UP TO 3 08/27/18 Nitroglycerin DOSES PRN 09:30 SL .CHEST (Nitroglyceri PAIN n (Sl Tab) 0.4 Mg) Ondansetron 4 mg ER BRIDGE 08/27/18 HCl (Zofran PRN IV 11:00 Inj) NAUSEA/VOMITI 08/28/18 10:59 NG 650 mg ER BRIDGE 08/27/18 Acetaminophen PRN PO 11:00 (Tylenol .MILD PAIN 08/28/18 10:59 Tab) 1-3 OR TEMP Procedures/MDM EKG read by me: Rate/Rhythm: Regular rate and rhythm at a normal rate Intervals: Normal Impression: No evidence of ischemia or arrhythmia Chest x-ray read by radiology. Patient is a 58-year-old male who presents for chest pain. The patient was given aspirin and nitroglycerin. He will go to the cardiac Hardwood Floor Installer with Dr. Ruiz today. I spoke with Dr. Sharp for admission to a telemetry bed. I am concerned for acute coronary syndrome. I doubt pneumonia, pneumothorax, pulmonary embolism, or aortic dissection. Departure Diagnosis: Primary Impression: Chest pain Chest pain type: unspecified Qualified Codes: R07.9 - Chest pain, u nspecified Condition: LAURA Hand MD Aug 27, 2018 12:50
--- NOTE | 2018-08-27 13:11 | HP ---
Date/Time of Note Date/Time of Note DATE: 08/27/18 TIME: 12:58 Assessment/Plan VTE Prophylaxis SCD applied (from Nsg): Yes Pharmacological prophylaxis: NA/contraindicated Pharm contraindication: surgical contra Lines/Catheters IV Catheter Type (from Nrsg): Saline Lock Assessment/Plan Assessment/Plan -Chest pain, abnormal stress test as an outpatient, continue aspirin nitroglycerin morphine. Plan for left heart catheterization today by Dr. Ruiz. -Coronary artery disease, status post PTCA and stent placement to LAD and circumflex in March 2018. -Hypertension -Hyperlipidemia -Diabetes Further recommendations based on clinical course. Plan of care discussed with Dr. Sharp. Result Diagram: 08/27/18 0945 08/27/18 0945 Results 24hrs Laboratory Tests Test 08/27/18 09:45 White Blood Count 7.5 Red Blood Count 5.09 Hemoglobin 14.9 Hematocrit 43.4 Mean Corpuscular Volume 85.3 Mean Corpuscular Hemoglobin 29.3 Mean Corpuscular Hemoglobin Concent 34.3 Red Cell Distribution Width 13.0 Platelet Count 142 Mean Platelet Volume 10.9 H Immature Granulocytes % 0.400 Neutrophils % 60.3 Lymphocytes % 23.9 Monocytes % 8.3 Eosinophils % 6.8 Basophils % 0.3 Nucleated Red Blood Cells % 0.0 Immature Granulocytes # 0.030 Neutrophils # 4.5 Lymphocytes # 1.8 Monocytes # 0.6 Eosinophils # 0.5 Basophils # 0.0 Nucleated Red Blood Cells # 0.0 Sodium Level 141 Potassium Level 4.1 Chloride Level 101 Carbon Dioxide Level 25 Anion Gap 15 H Blood Urea Nitrogen 15 Creatinine 0.90 Est Glomerular Filtrat Rate mL/min > 60 Glucose Level 154 Calcium Level 9.4 Troponin I 0.050 HPI/ROS Admit Date/Time Admit Date/Time Hx of Present Illness The patient is a 58-year-old gentleman with history of coronary artery disease, history of PTCA and stent placement to LAD and circumflex plaques in March 2018, hypertension, hyperlipidemia, long history of smoking quit 6 months ago, diabetes. Patient developed left-sided chest pain with radiation to the left shoulder and lower back at 2 a.m. last night. Pain is sharp and constant. Patient was also evaluated at Dr. Ruiz office and had abnormal stress test. Patient was giving aspirin and nitroglycerin with some relief. Patient will undergo a left heart catheterization today. Patient denies any nausea and v omiting denies diarrhea, denies shortness of breath. ROS 12 point review of system is negative except for what mentioned in HPI PMH/Family/Social Past Medical History Medical History: coronary artery disease, diabetes, high cholesterol, hypertension Medications Current Medications Nitroglycerin (Nitroglycerin (Sl Tab) 0.4 Mg) 1 tab Q5M UP TO 3 DOSES PRN SL .CHEST PAIN; Start 08/27/18 at 09:30 Ondansetron HCl (Zofran Inj) 4 mg ER BRIDGE PRN IV NAUSEA/VOMITING; Start 08/27/18 at 11:00; Stop 08/28/18 at 10:59 Acetaminophen (Tylenol Tab) 650 mg ER BRIDGE PRN PO .MILD PAIN 1-3 OR TEMP; Start 08/27/18 at 11:00; Stop 08/28/18 at 10:59 Coded Allergies: No Known Allergy (Unverified , 08/27/18) Past Surgical History Past Surgical Hx: other (Status post PTCA and stent placement in March 2018, status post back surgery in 1996.) Family History Significant Family History: heart disease (In patient's mother and brother), diabetes Social History Alcohol Use: occasionally Smoking Status: Former smoker Drug Use: none Exam/Review of Systems Vital Signs Vitals Vital Signs Date Temp Pulse Resp B/P (MAP) Pulse Ox O2 O2 Flow FiO2 Time Delivery Rate 08/27/18 79 16 109/67 100 Room Air 12:11 (81) 08/27/18 97.8 09:12 Exam Constitutional: alert, oriented Head: normocephalic Neck: supple Respiratory: clear to auscultation Cardiovascular: regular rate and rhythm Gastrointestinal: soft, non-tender Musculoskeletal: nl extremities to inspection Extremities: normal pulses Skin: nl MALCOLM Garcia Aug 27, 2018 13:11
[2018-08-27] MEDS ORDERED: IODIXANOL LOCM 100 ML BTL ONE ×2 (15:06→16:02)
[2018-08-27] MEDS ORDERED: LIDOCAINE 1% (MDV) 20 ML INJ ONE (15:06)
[2018-08-27] MEDS ORDERED: HEPARIN 1000 UNITS/ML 10 ML INJ ONE (15:06)
[2018-08-27] MEDS ORDERED: VERAPAMIL 5 MG INJ ONE (15:07)
[2018-08-27] MEDS ORDERED: NITROGLYCERIN (IC) 100 MCG/ML INJ ONE (15:07)
[2018-08-27] MEDS ORDERED: FENTAnyl 50 MCG/ML VIAL ONE (15:14)
[2018-08-27] MEDS ORDERED: MIDAZOLAM 1 MG/ML 2 ML INJ ONE (15:14)
[2018-08-27] MEDS ORDERED: IOHEXOL 350MG/ML 50 ML BTL ONE (16:02)
[2018-08-27] MEDS ORDERED: TICAGRELOR 90 MG TABLET ONE (16:06)
[2018-08-27] MEDS ORDERED: SOD CHLORIDE 0.9% 1,000 ML IV SCH (16:23)
--- NOTE | 2018-08-27 16:23 | SIPON ---
Date/Time of Note Date/Time of Note DATE: 08/27/18 TIME: 16:21 Operative Report Preoperative Diagnosis 1.unstable angina Postoperative Diagnosis 1.obstructive cad s/p stent to proximal LAD Operation/Procedure Performed 1.[facility] 2.PTCA/stent x 1 to LAD Surgeon see signature line records assistant 1.Eduardo Anesthesia: moderate sedation Estimated blood loss: minimal Transfusion Required none Specimen none Grafts/Implants none Complications none RAYMUNDO CALVO Aug 27, 2018 16:23
[2018-08-27] MEDS ORDERED: OXYCODONE/ACETAMINOPHEN (5/325) TAB PO PRN (16:30)
[2018-08-27] MEDS ORDERED: morphine 2 MG INJ IV PRN (16:30)
[2018-08-27] MEDS ORDERED: AL HYDROX/MG HYDROX/SIMETH 30 ML CUP PO PRN (16:30)
[2018-08-27] MEDS ORDERED: ZOLPIDEM 5 MG TAB PO PRN (16:30)
--- NOTE | 2018-08-27 17:03 | CONS ---
DATE OF ADMISSION: 08/27/2018 DATE OF CONSULTATION: 08/27/2018 TYPE OF CONSULTATION: Cardiology. REASON FOR CONSULTATION: Chest pain consistent with unstable angina. REQUESTING PHYSICIAN: Sandra Pace MD and Laura Jain MD, from emergency department. HISTORY OF PRESENT ILLNESS: Mr. Mcmullen is a very pleasant 58-year-old male with history of coronary a rtery disease, status post PTCA and stent placement to LAD and circumflex with drug-eluting stent in 03/2018, hypertension, dyslipidemia, ongoing tobacco usage, diabetes mellitus, who had developed recu rrent substernal chest pain. The patient was seen in his primary developmental behavioral physician's office and underwent a cardiac stress test, during which time he developed ST elevations. The patient had presented to [facility] and was discharged to outpatient followup, during which time he developed ST elevations a nd terminated the test. The patient states that he was to be scheduled for an outpatient catheteriza tion and then began to have worsening substernal chest pain initially with his run and then today emi major was walking from his car and subsequently presented to the emergency department. Upon arrival in the emergency department, temperature was 97.8, blood pressure 138/64, pulse 81, respiratory rate 18, satting 99%. The patient's labs revealed a white blood cell count of 7.5, hemoglobin 14.9, platelet count of 142, sodium 141, potassium 4.1, creatinine of 0.9, BUN 15, troponin negative. The patient underwent a chest x-ray revealing no acute cardiopulmonary abnormalities. The patient's electrocardi ogram revealed sinus rhythm, nonspecific ST-T abnormalities. The patient given crescendo chest pain consistent with unstable angina, he is to go to cardiac catheterization lab for emergent left heart c atheterization. PAST MEDICAL HISTORY: As above in HPI. MEDICATIONS PRIOR TO ADMIT: 1. Tamsulosin. 2. Brilinta 90 mg q.12. 3. ____ daily. 4. Atorvastatin 20 mg at bedtime. 5. Carvedilol 25 mg b.i.d. 6. Lisinopril 10 mg daily. 7. Sublingual nitroglycerin p.r.n. 8. Aspirin 81 mg daily. 9. Lantus. 10. Metformin. ALLERGIES: NO KNOWN DRUG ALLERGIES. SOCIAL HISTORY: Positive tobacco, social EtOH, no illicit drug use. FAMILY HISTORY: No history of sudden cardiac or early CAD. REVIEW OF SYSTEMS: As above in HPI. CONSTITUTIONAL: No fevers, chills. PULMONARY: Shortness of breath, dyspnea on exertion. CARDIOVASCULAR: Chest pain. GASTROINTESTINAL: No vomiting. GENITOURINARY: No hematuria. MUSCULOSKELETAL: Degenerative joint disease. PSYCHIATRIC: The patient has depression. NEUROLOGIC: No documented history of CVA. PHYSICAL EXAMINATION VITAL SIGNS: Temperature of 97.8, blood pressure 98/65, pulse 77, respiratory rate 14, satting 97%. GENERAL: The patient is alert, awake, complaining of substernal chest pain consistent with unstable angina. NECK: JVP is approximately 8 to 9 cm water. CHEST: Fair air movement throughout. HEART: Regular rate and rhythm. Normal S1, S2, I/ systolic murmur, nondisplaced PMI. ABDOMEN: Positive bowel sounds, soft. EXTREMITIES: No significant pitting edema, 1+ pulses bilateral posterior tibial. LABORATORY DATA: As above in HPI. No further labs for my review at this time. IMAGING STUDIES: As above in HPI. ELECTROCARDIOGRAM: As above in HPI. IMPRESSION: 1. Chest pain concerning for unstable angina with considerable change in angina last 2 days, now wor se with walking in his car and recent stress test during which time he developed ST elevations, a marky y marker for cardiovascular events. 2. History of PTCA and stent placement to LAD and circumflex in 03/2018. 3. Hypertension. 4. Dyslipidemia. 5. Diabetes mellitus. 6. Ongoing tobacco usage. RECOMMENDATIONS: 1. At this time given the patient's crescendo angina with pain with walking in his car and recent st ress test during which time he developed ST elevations, today she will be brought emergently to the c ath lab in order to undergo left heart catheterization to assess possibility of recurrent significant obstructive coronary artery disease lending to symptoms of chest pain, positive stress test and recu rrent admits to the hospital. 2. Further recommendations pertaining to care of this patient will be made after completion of the tony warner studies. Dictated By: RAYMUNDO MUNSON/NTS Conf#: [id number] DID#: [id number] CC: LAURA JAIN MD; SANDRA PACE MD;*EndCC*
--- NOTE | 2018-08-27 20:31 | CARRPT ---
DATE OF PROCEDURE: 08/27/2018 TYPE OF PROCEDURES: 1. Left heart catheterization. 2. Coronary angiography. 3. Percutaneous transluminal coronary angioplasty with placement of Synergy drug-eluting stent x1 to proximal ostial LAD, a 3.5 x 16 mm. 4. Moderate conscious sedation. ATTENDING PHYSICIAN: Raymundo Ruiz MD REFERRING PHYSICIAN: Wild Worthington MD INDICATION: Chest pain consistent with unstable angina and recently markedly positive stress test wi th ST elevations indicative of high-grade stenosis. BRIEF HISTORY AND HOSPITAL COURSE: Mr. Mcmullen is a 58-year-old male with history of hypertension, dys lipidemia, prior PTCA and stent placement to LAD and circumflex who presented with recurrent substern al chest pain and had underwent a cardiac stress test as an outpatient revealing ST elevations. The patient was to be scheduled for outpatient catheterization but during a run had onset of severe subst ernal chest pain, thought he was having a heart attack. He presented to the emergency department and was subsequently admitted to the hospital. The patient was brought to the cardiac [facility] [employer] [facility] left heart catheterization. DESCRIPTION OF PROCEDURE: After informed consent was obtained, the patient was brought to the [facility] cardiac catheterization lab where his right radial area was prepped and draped in sterile fashion. A 2% lidocaine was infiltrated into the right radial area in order to achieve a dequate anesthesia. Using the modified Seldinger technique, the right radial artery was cannulated a nd a 6-[place] arterial sheath was placed. A 6-[place] JL3.5 catheter was used in an attempt to cannul ate the left main coronary ostium. This proved unsuccessful and a JL3 was used to successfully cannu late the left main coronary ostium. With contrast injection, multiple views of left coronary system were obtained. A JL3 was removed over guidewire and a JR4 was used to cannulate the right coronary a rterial ostium. With contrast injection, multiple views of right coronary arterial system were obtai shaun. JL4 was then used to cross the LV and measure LVEDP and pull back across the aortic valve to as sess for significant gradient, which there was not and removed. Subsequently at this time, we moved directly into an interventional procedure given high-grade lesion in the patient's proximal LAD. A Q 3 guide was used to cannulate the left main coronary ostium. The patient had a preinterventional ACT checked and he had been given 5000 of heparin with his radial cocktail returning an acceptable prein terventional level. Subsequently, a 0.014 balanced guidewire was passed distal to the lesion LAD and the lesion was pretreated with a 2.5 x 12 mm balloon up to 18 and 20 atmospheres x2. This was remov ed and the lesion was stented with a 3.5 x 16 mm drug-eluting stent deployed at 14 atmospheres and th en post-dilated up to 16. Subsequently, it was then pulled forward and the stent overlap area was po stdilated up to 16 atmospheres. This was removed and the patient was given 200 mg of IC nitroglyceri n and followup angiogram was obtained revealing excellent result, deployment of stent, CAMPBELL 3 flow th roughout the vessel, no signs of complication including perforation or dissection, mild step up proxi delmi in the stent and into the second stent. Subsequently at this time, the patient's interve ntional guide and guidewires were removed. The patient was reloaded with 180 mg Brilinta and aspirin 81 mg. This completed the procedure. There were no noted complications. FINDINGS: Coronary angiography: Left main is 4.5 mm, no significant focal stenoses. Circumflex pro ximally is 3 mm vessel and splits very quickly into circ continuation AV groove, free from significan t focal stenoses and a proximal branching obtuse marginal is 3 mm with widely patent stent in its pro ximal portion. There is small diagonal that bifurcates just at the proximal portion of the stent, wh ich is a widely patent as well and mid portion of the obtuse marginal, there is a 50% eccentric steno sis. The LAD proximally is a 3.5 mm vessel and just proximal to the previous placed stent, the patie nt has a 90% focal lesion. The patient's stented zone is actually widely patent with no significant in-stent restenosis and the vessel after the stent has a 20% to 30% stenosis. Remainder of the LAD i s free from significant focal stenoses, around the apex 2 mid branching diagonals, each 2 mm with no significant focal stenoses. The right coronary artery proximally is a 3.5 mm vessel and in its midpo rtion has a 20% stenosis. Remainder of the right coronary artery is free from significant focal sten oses. It is dominant vessel and gives off a 2.5 mm PDA and a 2.5 mm posterolateral branch with a mid body 30% to 40% stenosis. PTCA and stent placement: Prior to PTCA and stent placement with the patient's proximal LAD and a fo gloria 90% stenosis. Post-PTCA and stent placement, the patient had no residual stenosis, CAMPBELL 3 flow t hroughout the vessel, no signs of complication including perforation or dissection. Measurement of left end diastolic pressure of 23 to 26. No significant aortic stenosis by gradient. TOTAL FLUOROSCOPY TIME: 10.8 minutes. TOTAL CONTRAST: 146 mL. IMPRESSION: 1. Single vessel obstructive coronary artery disease involving a high-grade lesion in the proximal L AD, status post successful PTCA and stent placement with drug-eluting stent x1. 2. Moderately elevated left heart filling pressures. 3. No significant aortic stenosis by gradient. 4. Widely patent mid LAD stent just distal to the stenosis and widely patent circumflex stent. RECOMMENDATIONS: In light of procedure findings at this time, we would: 1. Maintain patient on Brilinta 90 mg 1 tab p.o. b.i.d. for at least 6 months. 2. Aspirin 81 mg indefinitely. 3. Maximize medical management. 4. Aggressive risk factor reduction. 5. The patient will be readmitted to telemetry floor for post-cath observation and continued managem ent of symptoms with probable discharge the following day. Dictated By: RAYMUNDO MUNSON/MARYBEL Conf#: [id number] DID#: [id number] CC: LAURA JAIN MD;*End*
[2018-08-27] MEDS: TICAGRELOR 90 MG TABLET PO SCH (23:16)
[2018-08-27] MEDS ORDERED: INSULIN GLARGINE [LANTus] (100 UNITS/ML) SYG SC ONE (23:30)
[2018-08-27] MEDS ORDERED: GLUCOSE GEL 15 GRAM TUBE BUCCAL PRN (23:45)
[2018-08-27] MEDS ORDERED: GLUCOSE GEL 15 GRAM TUBE PO PRN ×2 (23:45)
[2018-08-27] MEDS ORDERED: GLUCAGON 1 MG INJ IM PRN (23:45)
[2018-08-27] MEDS ORDERED: DEXTROSE 50% 50 ML SYRINGE IV PRN ×2 (23:45)
[2018-08-28] VITALS (7 sets, daily range): BP systolic 108–132; BP diastolic 63–71; PULSE 82–103; RESP 20–22
[2018-08-28] MEDS ORDERED: ACCU-CHEK XX SCH (02:00)
[2018-08-28] MEDS: INSULIN ASPART [NOVOLOG] 3 ML PEN SC SCH ×2 (07:55→12:11)
[2018-08-28] MEDS: TICAGRELOR 90 MG TABLET PO SCH (08:04)
[2018-08-28] MEDS ORDERED: TICAGRELOR 90 MG TABLET PO SCH (09:00)
[2018-08-28] MEDS ORDERED: LISINOPRIL 20 MG TAB PO SCH (09:00)
[2018-08-28] MEDS ORDERED: ASPIRIN (EC) 81 MG TAB PO SCH (09:00)
[2018-08-28] MEDS ORDERED: INSULIN ASPART [NOVOLOG] 3 ML PEN SC SCH (11:30)
[2018-08-28] MEDS ORDERED: TICA90TA PO (12:10)
[2018-08-28] MEDS ORDERED: ASPI81TA52 PO (12:10)
--- NOTE | 2018-08-28 12:27 | CONS ---
Assessment/Plan Assessment/Plan Hospital Course (Demo Recall) MPRESSION: 1. Chest pain concerning for unstable angina with considerable change in angina last 2 days, now worse with walking in his car and recent stress test during which time he developed ST elevations-now POD#1 s/p stent x 1 to proximal LAD for high grade stenosis 2. History of PTCA and stent placement to LAD and circumflex in 03/2018. 3. Hypertension. 4. Dyslipidemia. 5. Diabetes mellitus. 6. Ongoing tobacco usage. Recc: -On tele. -Continue asa/brilinta -Continue coreg/ACEI -resume baseline statin at d/c -ok for d/c fro cardiac standpoint Consultation Date/Type/Reason Admit Date/Time Aug 27, 2018 at 10:59 Initial Consult Date 08/27/18 Type of Consult Cardiology Reason for Consultation angina Requesting Provider: SANDRA PACE MD Date/Time of Note DATE: 08/28/18 TIME: 12:22 Exam/Review of Systems Vital Signs Vitals Vital Signs Date Temp Pulse Resp B/P (MAP) Pulse Ox O2 O2 Flow FiO2 Time Delivery Rate 08/28/18 103 08:00 08/28/18 98.0 22 132/63 96 Room Air 07:48 (86) Intake and Output 08/27/18 08/27/18 08/28/18 1515:00 23:00 07:00 IntakeIntake Total 600 ml 200 ml OutputOutput Total 900 ml 100 ml BalanceBalance -300 ml 100 ml Exam Exam Review of Systems: CONSTITUTIONAL: No fevers, chills. PULMONARY: No sob CARDIOVASCULAR: No chest pain/palpitations GASTROINTESTINAL: No nausea/vomiting. GENITOURINARY: No hematuria/dysuria. MUSCULOSKELETAL: No myagias/arthalgias. PSYCHIATRIC: The patient denies depression. NEUROLOGIC: No weakness Constitutional: alert, oriented Psych: no complaints Head: normocephalic ENMT: mucosa pink and moist Neck: supple, jvd (9 cm water) Respiratory: diminished breath sounds (at bases/B) Cardiovascular: regular rate and rhythm Gastrointestinal: soft, non-tender Musculoskeletal: muscle tone (normal) Extremities: edema (none) Neurological: other (No focal deficits) Labs Result Diagram: 08/28/18 0519 08/28/18 0519 Results 24hrs Laboratory Tests Test 08/27/18 16:59 08/27/18 23:24 08/28/18 05:19 08/28/18 07:52 Bedside Glucose 130 216 270 H White Blood Count 9.5 # Red Blood Count 5.11 Hemoglobin 15.2 Hematocrit 43.4 Mean Corpuscular 84.9 Volume Mean Corpuscular 29.7 Hemoglobin Mean Corpuscular 35.0 Hemoglobin Concent Red Cell 13.1 Distribution Width Platelet Count 139 L Mean Platelet Volume 10.8 H Immature 0.200 Granulocytes % Neutrophils % 78.4 H Lymphocytes % 11.5 L Monocytes % 4.7 Eosinophils % 5.0 Basophils % 0.2 Nucleated Red Blood 0.0 Cells % Immature 0.020 Granulocytes # Neutrophils # 7.4 Lymphocytes # 1.1 Monocytes # 0.4 Eosinophils # 0.5 Basophils # 0.0 Nucleated Red Blood 0.0 Cells # Sodium Level 139 Potassium Level 3.9 Chloride Level 100 Carbon Dioxide Level 26 Anion Gap 13 Blood Urea Nitrogen 17 Creatinine 0.91 Est Glomerular > 60 Filtrat Rate mL/min Glucose Level 195 Calcium Level 9.1 Test 08/28/18 12:07 Bedside Glucose 225 H Medications Medications Current Medications Aspirin (Halfprin) 81 mg DAILY PO Last administered on 08/28/18at 08:03; Admin Dose 81 MG; Start 08/28/18 at 09:00 Ticagrelor (Brilinta) 90 mg BID PO Last administered on 08/28/18at 08:04; Admin Dose 90 MG; Start 08/27/18 at 21:00 Acetaminophen (Tylenol Tab) 650 mg Q4H PRN PO PAIN; Start 08/27/18 at 16:30 Oxycodone/ Acetaminophen (Percocet (5/ 325)) 1 tab Q4H PRN PO PAIN; Start 08/27/18 at 16:30 Morphine Sulfate (morphine) 1 mg Q1H PRN IV PAIN; Start 08/27/18 at 16:30 Zolpidem Tartrate (Ambien) 5 mg HS MAY REPEAT X 1 PRN PO INSOMNIA Last administered on 08/27/18at 23:56; Admin Dose 5 MG; Start 08/27/18 at 16:30 Al Hydrox/Mg Hydrox/Simethicone (Mag-Al Plus) 30 ml Q4H PRN PO GASTROINTESTINAL UPSET; Start 08/27/18 at 16:30 Ondansetron HCl (Zofran Inj) 4 mg Q4H PRN IV NAUSEA AND/OR VOMITING; Start 08/27/18 at 16:30 Insulin Glargine (Lantus) 30 units DAILY@2000 SC ; Start 08/28/18 at 20:00 Insulin Aspart (Novolog Insulin Pen) NOVOLOG *MODERATE* ALGORITHM WITH MEALS BEDTIME SC Last administered on 08/28/18at 12:11; Admin Dose 6 UNIT; Start 08/28/18 at 08:00 Miscellaneous Information 1 ea NOTE XX ; Start 08/27/18 at 23:45 Glucose (Glutose) 15 gm Q15M PRN PO DECREASED GLUCOSE; Start 08/27/18 at 23:45 Glucose (Glutose) 22.5 gm Q15M PRN PO DECREASED GLUCOSE; Start 08/27/18 at 23:45 Dextrose (D50w Syringe) 25 ml Q15M PRN IV DECREASED GLUCOSE; Start 08/27/18 at 23:45 Dextrose (D50w Syringe) 50 ml Q15M PRN IV DECREASED GLUCOSE; Start 08/27/18 at 23:45 Glucagon (Glucagen) 1 mg Q15M PRN IM DECREASED GLUCOSE; Start 08/27/18 at 23:45 Glucose (Glutose) 15 gm Q15M PRN BUCCAL DECREASED GLUCOSE; Start 08/27/18 at 23:45 Carvedilol (Coreg) 25 mg BID PO Last administered on 08/28/18at 10:17; Admin Dose 25 MG; Start 08/28/18 at 09:00 Lisinopril (Zestril) 20 mg DAILY PO Last administered on 08/28/18at 10:17; Admin Dose 20 MG; Start 08/28/18 at 09:00 Tamsulosin HCl (Flomax) 0.4 mg HS PO ; Start 08/28/18 at 21:00 Insulin Aspart (Novolog Insulin Pen) 14 unit AC BREAKFAST LUNCH SC Last administered on 08/28/18at 12:10; Admin Dose 14 UNIT; Start 08/28/18 at 11:30 RAYMUNDO CALVO Aug 28, 2018 12:27
[2018-08-28] MEDS ORDERED: INSULIN GLARGINE [LANTus] (100 UNITS/ML) SYG SC SCH (20:00)
[2018-08-28] MEDS ORDERED: TAMSULOSIN (SR) 0.4 MG CAP PO SCH (21:00)
--- NOTE | 2018-08-29 20:28 | DS ---
Date/Time of Note Date/Time of Note DATE: 08/29/18 TIME: 20:24 Discharge Summary Admission/Discharge Info Admit Date/Time Aug 27, 2018 at 10:59 Discharge Date/Time Aug 28, 2018 at 13:42 Patient Condition: Stable Hx of Present Illness The patient is a 58-year-old gentleman with history of coronary artery disease, history of PTCA and stent placement to LAD and circumflex plaques in March 2018, hypertension, hyperlipidemia, long history of smoking quit 6 months ago, diabetes. Patient developed left-sided chest pain with radiation to the left shoulder and lower back at 2 a.m. last night. Pain is sharp and constant. Patient was also evaluated at Dr. Ruiz office and had abnormal stress test. Patient was giving aspirin and nitroglycerin with some relief. Patient will undergo a left heart catheterization today. Patient denies any nausea and vomiting denies diarrhea, denies shortness of breath. Hospital Course -Single vessel obstructive coronary artery disease involving a high-grade lesion in the proximal LAD, status post successful PTCA and stent placement with drug- eluting stent x1 on 08/27/[address] Ruiz. Continue aspirin and Brilinta. -Hx of coronary artery disease, status post PTCA and stent placement to LAD and circumflex in March 2018. -Hypertension -Hyperlipidemia -Diabetes Plan of care discussed with Dr. Sharp. Home Meds Active Scripts Ticagrelor* (Brilinta*) 90 Mg Tablet, 90 MG PO Q12 for 30 Days, TAB 1 Refill Prov:MALCOLM JOYCE 08/28/18 Aspirin (Low Dose Aspirin) 81 Mg Tablet., 81 MG PO DAILY for 30 Days, #30 TAB 1 Refill Prov:MALCOLM JOYCE 08/28/18 Reported Medications Amlodipine Besylate* (Amlodipine Besylate*) 2.5 Mg Tablet, 2.5 MG PO DAILY, #30 TAB 08/21/18 Insulin Glargine,Hum.rec.anlog (Toujeo Solostar) 300 Unit/1 Ml Insuln.pen, 36 UNIT SQ QHS, EA 08/21/18 Insulin Lispro (Humalog Kwikpen U-100) 100 Unit/1 Ml Insuln.pen, 14 UNIT SQ AC BREAKFAST LUNCH, EA 03/20/18 Tamsulosin Hcl* (Tamsulosin Hcl*) 0.4 Mg Cap.er.24h, 0.4 MG PO HS, CAP 03/20/18 Metformin Hcl* (Metformin Hcl*) 1,000 Mg Tablet, 1000 MG PO WITH BREAKFAST DINNE, #60 TAB 03/20/18 Lisinopril* (Lisinopril*) 20 Mg Tablet, 20 MG PO DAILY, #30 TAB 03/20/18 Carvedilol* (Carvedilol*) 25 Mg Tablet, 25 MG PO BID, #60 TAB 03/20/18 Atorvastatin Calcium* (Atorvastatin Calcium*) 20 Mg Tablet, 20 MG PO QHS, #30 TAB 03/20/18 Nitroglycerin* (Nitrostat*) 0.4 Mg Tab.subl, 0.4 MG SL Q5MIN PRN for CHEST PAIN, BOTTLE 03/20/18 Discontinued Scripts Ticagrelor* (Brilinta*) 90 Mg Tablet, 90 MG PO BID for 30 Days, TAB Prov:GARY AVILES 03/21/18 Follow-up Plan Follow-up with Dr. Ruiz in 2 weeks. Primary Care Provider Terrence Ruiz Time spent on discharge: > 30 minutes MALCOLM JOYCE Aug 29, 2018 20:28
--- NOTE | 2018-08-31 18:15 | RADRPT ---
Vent Rate: 92 bpm RR Interval: 0 msec OR Interval: 142 msec QRS Duration: 94 msec QT Interval: 348 msec QTC Interval: 430 msec P-R-T [place]: 64 - 43 - 76 degrees Normal sinus rhythm Normal ECG Electronically Signed By: Agustin Munoz
--- NOTE | 2018-08-31 18:16 | RADRPT ---
Vent Rate: 77 bpm RR Interval: [address] Interval: 154 msec QRS Duration: 92 msec QT Interval: 376 msec QTC Interval: 425 msec P-R-T [place]: 64 - 35 - 75 degrees Normal sinus rhythm Normal ECG Electronically Signed By: Agustin Munoz
== END 2018-08-28 13:42 | disposition home or self-care (01) ==
LOC: E/R 09:08 → 6WM 10:59 → E/R 14:30 → CANBEDREQ 20:18
PROVIDERS: ADMIT Internal Medicine; ATTEND Internal Medicine
DX: I25.10 Atherosclerotic heart disease of native coronary artery without angina pectoris (principal); R94.39 Abnormal result of other cardiovascular function study; I10 Essential (primary) hypertension; E78.5 Hyperlipidemia, unspecified; E11.9 Type 2 diabetes mellitus without complications; Z79.82 Long term (current) use of aspirin; Z79.84 Long term (current) use of oral hypoglycemic drugs
CPT/HCPCS: 36415; 71045; 80048; 82962; 84484; 85025; 93005; J1644; J1815; J2250; J3010; J7030; Q9967; Z7500; Z7502; Z7610; G0378